=== PATIENT | female | born 1990 | race Caucasian/White ===

== ENCOUNTER 2017-02-15 02:48 | Inpatient (IN) | payer OTHER ==
[~2017-02-15] VITALS: Ht 170.2 cm; Wt 98.5 kg
[2017-02-15] MEDS ORDERED: ACETAMINOPHEN 325 MG TAB PO STA (03:04)
[2017-02-15] MEDS ORDERED: morphine 4 MG/ML VIAL IV STA ×2 (03:04→05:12)
[2017-02-15] MEDS ORDERED: ONDANSETRON 4 MG INJ IV STA ×2 (03:04→05:12)
[2017-02-15] MEDS ORDERED: SODIUM CHLORIDE 0.9% 1L BAG IV* STA (03:04)
[2017-02-15 03:35] LABS: BASOPHILS % 0.1 % (0.0-2.0); EOSINOPHILS % 0.1 % (0.0-7.0); HEMATOCRIT 36.3 % (37.0-47.0); HEMOGLOBIN 11.8 g/dl (12.0-16.0); LYMPHOCYTES # 0.9 10^3/ul (0.8-2.9); LYMPHOCYTES % 6.1 % (15.0-51.0); MEAN CORPUSCULAR HEMOGLOBIN 26.6 pg (29.0-33.0); MEAN CORPUSCULAR HGB CONC 32.5 g/dl (32.0-37.0); MEAN CORPUSCULAR VOLUME 81.8 fl (82.0-101.0); MEAN PLATELET VOLUME 10.3 fl (7.4-10.4); NEUTROPHIL # 12.1 10^3/ul (1.6-7.5); NEUTROPHILS % 86.2 % (39.0-77.0); PLATELET COUNT 276 10^3/UL (140-415); RED BLOOD COUNT 4.44 10^6/ul (4.20-5.40); RED CELL DISTRIBUTION WIDTH 13.7 % (11.5-14.5)
[2017-02-15 03:51] LABS: INR 0.97; PROTIME 12.9 Sec (12.2-14.2)
[2017-02-15 03:52] LABS: PARTIAL THROMBOPLASTIN TIME 30.4 Sec (25.0-35.0)
[2017-02-15 03:59] LABS: ADD UMIC YES; UR ASCORBIC ACID NEGATIVE (NEGATIVE); UR BACTERIA FEW /HPF (NONE SEEN); UR BILIRUBIN (Dip) NEGATIVE (NEGATIVE); UR BLOOD (Dip) 3+ mg/dL (NEGATIVE); UR CLARITY TURBID (CLEAR); UR COLOR AMBER (YELLOW); UR GLUCOSE (Dip) NEGATIVE (NEGATIVE); UR KETONES (Dip) NEGATIVE (NEGATIVE); UR LEUKOCYTE ESTERASE (Dip) 2+ Leu/ul (NEGATIVE); UR MUCUS MANY /HPF (NONE SEEN); UR NITRITE (Dip) POSITIVE (NEGATIVE); UR RBC > 182 /HPF (0-5); UR SQUAMOUS EPITHELIAL CELL MODERATE /HPF (FEW); UR TOTAL PROTEIN (Dip) 2+ mg/dl (NEGATIVE); UR UROBILINOGEN (Dip) NEGATIVE (NEGATIVE)
[2017-02-15 04:02] LABS: ALANINE AMINOTRANSFERASE 38 IU/L (13-69); ALBUMIN 4.5 g/dl (3.3-4.9); ALBUMIN/GLOBULIN RATIO 1.32; ALKALINE PHOSPHATASE 77 IU/L (42-121); ANION GAP 20 (8-16); ASPARTATE AMINO TRANSFERASE 24 IU/L (15-46); BILIRUBIN,INDIRECT 0.4 mg/dl (0-1.1); BILIRUBIN,TOTAL 0.4 mg/dl (0.2-1.3); BLOOD UREA NITROGEN 10 mg/dl (7-20); CALCIUM 9.4 mg/dl (8.4-10.2); CARBON DIOXIDE 25 mmol/L (21-31); CHLORIDE 102 mmol/L (97-110); CREATININE 0.84 mg/dl (0.44-1.00); GLUCOSE 99 mg/dl (70-220); POTASSIUM 3.7 mmol/L (3.5-5.1); SODIUM 143 mmol/L (135-144); TOTAL PROTEIN 7.9 g/dl (6.1-8.1)
[2017-02-15 04:11] LABS: TROPONIN-I < 0.012 ng/ml (0.00-0.12)
--- NOTE | 2017-02-15 04:26 | RADRPT ---
PROCEDURE: CHEST - 1 VIEW CLINICAL INDICATION: 26-year-old female with shortness of breath and sepsis. TECHNIQUE: A single frontal AP portable upright view of the chest was performed. The images were reviewed on a PACS workstation. COMPARISON: None. FINDINGS: The cardiomediastinal silhouette has a normal appearance. There is no evidence for an infiltrate. T he pulmonary vascularity is within normal limits. There is no evidence for pneumothorax or pneumomed iastinum. The osseous structures are intact. IMPRESSION: No evidence for active cardiopulmonary disease. .Lonnie Turner MD, MD Date Time Electronically viewed and signed by .Lonnie Turner MD, on 02/15/2017 04:26 .El/
--- NOTE | 2017-02-15 04:33 | RADRPT ---
PROCEDURE: CT ABDOMEN/PELVIS WITHOUT CONTRAST CLINICAL INDICATION: 26-year-old female with abdominal pain and sepsis. TECHNIQUE: The study was performed utilizing a GE [employer] VCT 64-slice CT scanner. Direct axia l sections were obtained through the abdomen and pelvis without the use of intravenous contrast mate rial. Sagittal and coronal reformations were obtained. One or more of the following dose reduction t echniques were utilized: automated exposure control, adjustment of the mA and/or kV according to pat ient's size or use of iterative reconstruction technique. The images were reviewed on a PACS workst at[employer]. CTD/vol = 20.9 mGy; Total Exam DLP = 1308.1 mGy-cm. COMPARISON: None. FINDINGS: The lung bases are unremarkable. There is no evidence for significant pleural effusion. The liver has a normal size and contour without focal areas of abnormal density. No intrahepatic nor extrahepa tic biliary ductal dilatation is seen. Surgical clips are seen within the gallbladder fossa from car or cholecystectomy. The pancreas is without areas of abnormal attenuation. The spleen is identifie d and has a normal size without abnormal density. The adrenal glands are unremarkable. The right kid vini is without abnormal density, calculi or obstruction. There is a left ureteral stent in place wi th the upper portion in the renal pelvis and the distal aspect in the bladder. Note that there appea rs to be calcifications forming within the distal tip of the ureteral stent in the bladder seen best on coronal image 47. There is mild left-sided hydronephrosis with perinephric infiltration. There are multiple small punctate nonobstructing left lower pole renal candy calculi. The urinary bladder contains urine. There is mild retained stool within the ascending and transverse colon witho ut obstruction. An anastomotic pauline are seen along the cecum consistent with prior appendectomy. There is an intrauterine device within the uterus. There is no significant pelvic free fluid. The aortoiliac vessels are without aneurysmal dilatation. The osseous structures are intact. IMPRESSION: 1. Left ureteral stent in place with calcifications forming along the distal tip of the ureteral st ent in the bladder and mild resultant left-sided hydronephrosis with perinephric infiltration. 2. Multiple small nonobstructing left lower pole renal candy calculi. 3. Status post cholecystectomy. 4. Mild retained stool within the proximal colon without obstruction. 5. Status post appendectomy. 6. Intrauterine device. .Lonnie Turner MD, MD Date Time Electronically viewed and signed by .Lonnie Turner MD, MD on 02/15/2017 04:32 ./
[2017-02-15] MEDS ORDERED: HYDROmorphONE 1 MG/ML SYG IV STA (05:13)
--- NOTE | 2017-02-15 05:23 | ERD ---
ER Documentation Chief Complaint Date/Time DATE: 02/15/17 TIME: 05:22 Chief Complaint N/V fever for 2 days with a stent in L kidney HPI 26 if no nausea vomiting fever for 2 days. Patient has history of stents in the left kidney. Also complaining. Hematuria. No other current complaints. Pain is mild to moderate intensity. Urgency frequency of urination. ROS All systems reviewed and are negative except as per history of present illness. Allergies Allergies: Coded Allergies: No Known Allergy (Unverified , 02/15/17) PMhx/Soc History of Surgery: Yes (, stent) Anesthesia Reaction: No Hx Neurological Disorder: No Hx Respiratory Disorders: No Hx Cardiac Disorders: No Hx Psychiatric Problems: No Hx Miscellaneous Medical Probl: No Hx Alcohol Use: No Hx Substance Use: No Hx Tobacco Use: No Smoking Status: Never smoker Physical Exam Vitals Vital Signs Date Time Temp Pulse Resp B/P Pulse Ox O2 Delivery O2 Flow Rate FiO2 02/15/17 05:13 86 18 122/66 98 Room Air 02/15/17 02:58 101.1 114 18 144/77 98 Physical Exam Const: [] Head: Atraumatic Eyes: Normal Conjunctiva ENT: Normal External Ears, Nose and Mouth. Neck: Full range of motion..~ No meningismus. Resp: Clear to auscultation bilaterally Cardio: Regular rate and rhythm, no murmurs Abd: Soft, non tender, non distended. Normal bowel sounds Skin: No petechiae or rashes Back: No midline or flank tenderness Ext: No cyanosis, or edema Neur: Awake and alert Psych: Normal Mood and Affect Result Diagram: 02/15/17 0300 02/15/17 0300 Results 24 hrs Laboratory Tests Test 02/15/17 03:00 White Blood Count 14.010^3/ul Red Blood Count 4.4410^6/ul Hemoglobin 11.8g/dl Hematocrit 36.3% Mean Corpuscular Volume 81.8fl Mean Corpuscular Hemoglobin 26.6pg Mean Corpuscular Hemoglobin Concent 32.5g/dl Red Cell Distribution Width 13.7% Platelet Count 78544^3/UL Mean Platelet Volume 10.3fl Neutrophils % 86.2% Lymphocytes % 6.1% Monocytes % 7.0% Eosinophils % 0.1% Basophils % 0.1% Nucleated Red Blood Cells % 0.0/100WBC Neutrophils # 12.110^3/ul Lymphocytes # 0.910^3/ul Monocytes # 1.010^3/ul Eosinophils # 0.010^3/ul Basophils # 0.010^3/ul Nucleated Red Blood Cells # 0.010^3/ul Prothrombin Time 12.9Sec Prothrombin Time Ratio 1.0 INR International Normalized Ratio 0.97 Activated Partial Thromboplast Time 30.4Sec Urine Color JOYCE Urine Clarity TURBID Urine pH 6.0 Urine Specific [place] 1.020 Urine Ketones NEGATIVEmg/dL Urine Nitrite POSITIVEmg/dL Urine Bilirubin NEGATIVEmg/dL Urine Urobilinogen NEGATIVEmg/dL Urine Leukocyte Esterase 2+Kourtney/ul Urine Microscopic RBC > 182/HPF Urine Microscopic WBC > 182/HPF Urine Squamous Epithelial Cells MODERATE/HPF Urine Bacteria FEW/HPF Urine Mucus MANY/HPF Urine Hemoglobin 3+mg/dL Urine Glucose NEGATIVEmg/dL Urine Total Protein 2+mg/dl Sodium Level 143mmol/L Potassium Level 3.7mmol/L Chloride Level 102mmol/L Carbon Dioxide Level 25mmol/L Anion Gap 20 Blood Urea Nitrogen 10mg/dl Creatinine 0.84mg/dl Glucose Level 99mg/dl Lactic Acid Level 1.4mmol/L Calcium Level 9.4mg/dl Total Bilirubin 0.4mg/dl Direct Bilirubin 0.00mg/dl Indirect Bilirubin 0.4mg/dl Aspartate Amino Transf (AST/SGOT) 24IU/L Alanine Aminotransferase (ALT/SGPT) 38IU/L Alkaline Phosphatase 77IU/L Troponin I < 0.012ng/ml Total Protein 7.9g/dl Albumin 4.5g/dl Globulin 3.40g/dl Albumin/Globulin Ratio 1.32 Current Medications Medications (Trade) Dose Ordered Sig/Bandar Route PRN Reason Start Time Stop Time Status Last Admin Dose Admin Sodium Chloride (NS) 3,050 ml BOLUS OVER 2 HOURS STAT IV* 02/15/17 03:04 02/15/17 03:07 DC 02/15/17 03:26 Acetaminophen (Tylenol Tab) 650 mg ONCE STAT PO 02/15/17 03:04 02/15/17 03:08 DC 02/15/17 03:27 Morphine Sulfate (morphine) 4 mg ONCE STAT IV 02/15/17 03:04 02/15/17 03:08 DC 02/15/17 03:26 Ondansetron HCl (Zofran Inj) 4 mg ONCE STAT IV 02/15/17 03:04 02/15/17 03:08 DC 02/15/17 03:27 Morphine Sulfate (morphine) 4 mg ONCE STAT IV 02/15/17 05:12 02/15/17 05:15 DC Ondansetron HCl (Zofran Inj) 4 mg ONCE STAT IV 02/15/17 05:12 02/15/17 05:15 DC Hydromorphone HCl (Dilaudid) 1 mg ONCE STAT IV 02/15/17 05:13 02/15/17 05:14 DC Procedures/MDM Medical decision-making: This is a 26-year-old female complicated UTI given the past she has prior stenting. Evidence of pyelonephritis. No evidence of sepsis. Patient will be admitted to Dr. Boogie. Antibiotic started. Culture results pending. Departure Diagnosis: Primary Impression: Pyelonephritis Condition: Stable MANN GIFFORD Feb 15, 2017 05:23
[2017-02-15 06:30] VITALS: BP 132/68; PULSE 92; RESP 18; Ht 170.2 cm; Wt 98.5 kg
[2017-02-15] MEDS ORDERED: CEFTRIAXONE 1 GM/50 ML (PMX) 50 ML IVPB ONE (06:30)
[2017-02-15] MEDS: morphine 4 MG/ML VIAL IV PRN ×3 (06:51→17:50)
[2017-02-15] MEDS ORDERED: CEFTRIAXONE 1 GM/50 ML (PMX) 50 ML IVPB SCH (07:00)
--- NOTE | 2017-02-15 07:02 | HP ---
Date/Time of Note Date/Time of Note DATE: 02/15/17 TIME: 07:02 Assessment/Plan VTE Prophylaxis VTE Prophylaxis Intervention: SCD's Assessment/Plan Assessment/Plan 1. Sepsis, secondary to pyelonephritis -IV antibiotic -Follow-up on urine culture and blood culture results -Pain management -Consider urology and ID consult 2. History of obstructing left ureteral stone, status post stent placement -Consider urology consult HPI/ROS Admit Date/Time Admit Date/Time Feb 15, 2017 at 05:41 Hx of Present Illness This is a 26-year-old female with a history of left ureteral stent placement, cholecystectomy, appendectomy, who presented to the emergency department complaining of fever, left flank pain, hematuria as well as nausea and nonbloody nonbilious vomiting 2 days duration. Patient has a history of left ureteral stone and stent was placed at outside hospital 2 months ago. She was supposed to follow-up with her urologist to have the stent removed but because of insurance reason she was unable to do so. Her insurance company has referred her to another urologist but she said she is not going to be able to see the new urologist until sometime in February. Pt denied chest pain, shortness of breath or hematuria. When she presented to the ER, she was febrile with a temperature of 1 1.1, WBC was 14,000, urinalysis was consistent with a severe UTI. CT abdomen pelvis shows left ureteral stent was calcification forming along the distal tip of ureter with mild left-sided hydronephrosis and perinephric infiltration. Also multiple nonobstructing left lower pole renal calyx calculi and retained stool was noted on the CAT scan. . PMH/Family/Social Past Medical History Medical History: other (Left ureteral stone status post stent placement) Past Surgical History Past Surgical Hx: appendectomy, cholecystectomy Social History Alcohol Use: none Smoking Status: Never smoker Drug Use: none Exam/Review of Systems Vital Signs Vitals Vital Signs Date Time Temp Pulse Resp B/P Pulse Ox O2 Delivery O2 Flow Rate FiO2 02/15/17 05:13 86 18 122/66 98 Room Air 02/15/17 02:58 101.1 Exam Exam Constitutional: alert, oriented, well developed Head: atraumatic, normocephalic Eyes: EOMI, PERRL Respiratory: clear to auscultation, normal air movement Cardiovascular: nl pulses, regular rate and rhythm Gastrointestinal: other (Left flank tenderness), soft Extremities: normal pulses Labs Result Diagram: 02/15/17 0300 02/15/17 030 Medications Medications Current Medications Morphine Sulfate (morphine) 3 mg Q4H PRN IV PAIN Last administered on t 06:51; Admin Dose 3 MG; Start 02/15/17 at 07:00 Ondansetron HCl 4 mg 4 mg Q6H PRN IV NAUSEA AND/OR VOMITING; Start 02/15/17 at 07:00 Sodium Chloride 1,000 ml @ 100 mls/hr Q10H IV ; Start 02/15/17 at 07:00; Stop 02/16/17 at 07:00 Ceftriaxone Sodium (Rocephin) 50 ml @ 100 mls/hr Q12H IVPB ; Start 02/15/17 at 21:00 MANN WILLAMS MD Feb 15, 2017 07:02
[2017-02-15] MEDS: SOD CHLORIDE 0.9% 1,000 ML IV SCH ×2 (07:03→17:47)
[2017-02-15 08:00] VITALS: BP 145/85; RESP 16
[2017-02-15] MEDS: ONDANSETRON 4 MG INJ IV PRN (08:21)
--- NOTE | 2017-02-15 13:54 | CONS ---
Date/Time of Note Date/Time of Note DATE: 02/15/17 TIME: 13:42 Assessment/Plan Assessment/Plan Chief Complaint/Hosp Course Left flank pain, fever and hematuria. The patient is status post cystoscopy, ureteroscopy laser lithotripsy and insertion of a JJ stent. She is covered with antibiotic. She has a stones formed on the distal curl of the stent in the bladder. She does have multiple stones in the lower pole of the left kidney. Plan to do cystoscopy, cystolitholapaxy, removal of the left ureteral JJ stent. Possible insertion of a new left ureteral JJ stent. I discussed with her and her significant other who was with her in the room the treatment and also about the stones on the bottom of the left kidney, and since these stones are not causing her any obstruction and they are small and she may be able to pass them on her own therefore we will do nothing to them at the present time Problems: Consultation Date/Type/Reason Admit Date/Time Feb 15, 2017 at 05:41 Date of Consultation: Feb 15, 2017 Type of Consultation: Urology Reason for Consultation Patient is status post cystoscopy left ureteral JJ stent, she has pain and fever and needs to JJ stent removed Hx of Present Illness This is a 26-year-old female 2 para 2, 2 C-sections, presented to [facility] in December with a left flank pain, was found to have left ureteral stone, underwent cystoscopy left ureteroscopy and laser lithotripsy and insertion of left ureteral JJ stent. Patient was supposed to have the stent removed but for insurance problems she did not. She presented now to [facility] because of fever pain and bleeding. CT scan of the abdomen and pelvis showed 1. Left ureteral stent in place with calcifications forming along the distal tip of the ureteral stent in the bladder and mild resultant left-sided hydronephrosis with perinephric infiltration. 2. Multiple small nonobstructing left lower pole renal candy calculi. 3. Status post cholecystectomy. 4. Mild retained stool within the proximal colon without obstruction. 5. Status post appendectomy. 6. Intrauterine device. .Lonnie Turner MD, MD Therefore a urological consultation was requested Constitutional: febrile Eyes: no complaints ENT: no complaints Respiratory: no complaints Cardiovascular: no complaints Gastrointestinal: No nausea, No vomiting Genitourinary: flank pain, hematuria, other (Patient has vaginal bleeding and on the examination she appears to have her menstrual periods.) Musculoskeletal: no complaints Skin: no complaints Neurologic: no complaints Endocrine: no complaints Lymphatic: no complaints Psychological: no complaints Past Medical History Medical History: no pertinent history, other (Left ureteral stone status post stent placement) Past Surgical History Past Surgical Hx: appendectomy, cholecystectomy, other (2 C-sections) Social History Father has renal failure and is on hemodialysis, no family history of kidney stones Alcohol Use: none Smoking Status: Never smoker Drug Use: none Exam/Review of Systems Vital Signs Vitals Vital Signs Date Time Temp Pulse Resp B/P Pulse Ox O2 Delivery O2 Flow Rate FiO2 02/15/17 08:00 100.1 101 16 145/85 100 02/15/17 06:30 Room Air Exam Constitutional: alert, oriented Psych: no complaints Head: normocephalic Eyes: nl conjunctiva ENMT: nl external ears & nose Neck: non-tender, supple Respiratory: normal air movement Cardiovascular: regular rate and rhythm Gastrointestinal: other (Tender left lower quadrant and left flank area), soft Genitourinary - Female: CVA tenderness, other (Patient has IUD) Extremities: No calf tenderness Skin: nl turgor Results Result Diagram: 02/15/17 0300 02/15/17 0300 Results 24 hrs Laboratory Tests Test 02/15/17 03:00 02/15/17 05:19 02/15/17 08:12 White Blood Count 14.0 H Red Blood Count 4.44 Hemoglobin 11.8 L Hematocrit 36.3 L Mean Corpuscular Volume 81.8 L Mean Corpuscular Hemoglobin 26.6 L Mean Corpuscular Hemoglobin Concent 32.5 Red Cell Distribution Width 13.7 Platelet Count 276 Mean Platelet Volume 10.3 Neutrophils % 86.2 H Lymphocytes % 6.1 L Monocytes % 7.0 Eosinophils % 0.1 Basophils % 0.1 Nucleated Red Blood Cells % 0.0 Neutrophils # 12.1 H Lymphocytes # 0.9 Monocytes # 1.0 H Eosinophils # 0.0 Basophils # 0.0 Nucleated Red Blood Cells # 0.0 Prothrombin Time 12.9 Prothrombin Time Ratio 1.0 INR International Normalized Ratio 0.97 Activated Partial Thromboplast Time 30.4 Urine Color JOYCE Urine Clarity TURBID A Urine pH 6.0 Urine Specific [place] 1.020 Urine Ketones NEGATIVE Urine Nitrite POSITIVE A Urine Bilirubin NEGATIVE Urine Urobilinogen NEGATIVE Urine Leukocyte Esterase 2+ H Urine Microscopic RBC > 182 H Urine Microscopic WBC > 182 H Urine Squamous Epithelial Cells MODERATE Urine Bacteria FEW A Urine Mucus MANY A Urine Hemoglobin 3+ H Urine Glucose NEGATIVE Urine Total Protein 2+ H Sodium Level 143 Potassium Level 3.7 Chloride Level 102 Carbon Dioxide Level 25 Anion Gap 20 H Blood Urea Nitrogen 10 Creatinine 0.84 Glucose Level 99 Lactic Acid Level 1.4 0.8 1.7 Calcium Level 9.4 Total Bilirubin 0.4 Direct Bilirubin 0.00 Indirect Bilirubin 0.4 Aspartate Amino Transf (AST/SGOT) 24 Alanine Aminotransferase (ALT/SGPT) 38 Alkaline Phosphatase 77 Troponin I < 0.012 Total Protein 7.9 Albumin 4.5 Globulin 3.40 H Albumin/Globulin Ratio 1.32 Medications Medications Current Medications Morphine Sulfate (morphine) 3 mg Q4H PRN IV PAIN Last administered on 06:51; Admin Dose 3 MG; Start 02/15/17 at 07:00 Ondansetron HCl 4 mg 4 mg Q6H PRN IV NAUSEA AND/OR VOMITING Last administered on 02/15/17 08:21; Admin Dose 4 MG; Start 02/15/17 at 07:00 Sodium Chloride 1,000 ml @ 100 mls/hr Q10H IV Last administered on 02/15/17 07:03; Admin Dose 100 MLS/HR; Start 02/15/17 at 07:00; Stop 02/16/17 at 07:00 Ceftriaxone Sodium (Rocephin) 50 ml @ 100 mls/hr Q12H IVPB ; Start 02/15/17 at 21:00 GOLD CESAR MD Feb 15, 2017 13:54
[2017-02-15 14:00] VITALS: BP 132/86; RESP 18
[2017-02-15] MEDS ORDERED: morphine 2 MG INJ IV ONE (15:00)
[2017-02-15] MEDS ORDERED: ACETAMINOPHEN 500 MG TAB PO PRN (15:00)
[2017-02-15 20:00] VITALS: BP 125/70; RESP 20
[2017-02-15] MEDS: CEFTRIAXONE 1 GM/50 ML (PMX) 50 ML IVPB SCH (20:16)
[2017-02-15] MEDS ORDERED: ACETAMINOPHEN 325 MG TAB PO PRN (22:00)
[2017-02-16] VITALS (18 sets, daily range): BP systolic 112–143; BP diastolic 65–86; PULSE 86–98; RESP 16–20
[2017-02-16] MEDS: HYDROmorphONE 1 MG/ML SYG IV PRN ×4 (02:17→15:44)
[2017-02-16] MEDS: SOD CHLORIDE 0.9% 1,000 ML IV SCH ×2 (03:00→06:11)
[2017-02-16 05:12] LABS: BASOPHILS % 0.2 % (0.0-2.0); EOSINOPHILS % 0.2 % (0.0-7.0); HEMOGLOBIN 10.4 g/dl (12.0-16.0); LYMPHOCYTES # 1.5 10^3/ul (0.8-2.9); MEAN CORPUSCULAR HEMOGLOBIN 26.1 pg (29.0-33.0); MEAN CORPUSCULAR HGB CONC 32.5 g/dl (32.0-37.0); MEAN CORPUSCULAR VOLUME 80.2 fl (82.0-101.0); MEAN PLATELET VOLUME 10.2 fl (7.4-10.4); MONOCYTES % 8.9 % (0.0-11.0); NEUTROPHILS % 77.4 % (39.0-77.0); PLATELET COUNT 196 10^3/UL (140-415); RED BLOOD COUNT 3.99 10^6/ul (4.20-5.40); RED CELL DISTRIBUTION WIDTH 13.8 % (11.5-14.5); WHITE BLOOD COUNT 11.7 10^3/ul (4.8-10.8)
[2017-02-16 05:43] LABS: CHOL/HDL RATIO 2.5 RATIO; MAGNESIUM 1.9 mg/dl (1.7-2.5); PHOSPHORUS 3.3 mg/dl (2.5-4.9)
[2017-02-16 05:47] LABS: ALBUMIN 3.6 g/dl (3.3-4.9); ALBUMIN/GLOBULIN RATIO 1.12; BILIRUBIN,INDIRECT 0.2 mg/dl (0-1.1); BILIRUBIN,TOTAL 0.2 mg/dl (0.2-1.3); CALCIUM 8.5 mg/dl (8.4-10.2); CREATININE 0.6 mg/dl (0.44-1.00); POTASSIUM 3.4 mmol/L (3.5-5.1); TOTAL PROTEIN 6.8 g/dl (6.1-8.1)
[2017-02-16 08:29] LABS: THYROID STIMULATING HORMONE 1.45 MIU/L (0.465-4.680)
[2017-02-16] MEDS: CEFTRIAXONE 1 GM/50 ML (PMX) 50 ML IVPB SCH ×2 (08:37→18:40)
[2017-02-16] MEDS ORDERED: DEXTROSE 5%-0.45% NACL 1,000 ML IV SCH (11:30)
--- NOTE | 2017-02-16 12:01 | PN ---
Date/Time of Note Date/Time of Note DATE: 02/16/17 TIME: 12:01 Assessment/Plan VTE Prophylaxis VTE Prophylaxis Intervention: SCD's Lines/Catheters IV C[facility]ter Type [facility] Saline Lock Assessment/Plan Chief Complaint/Hosp Course 1. Left-sided pyelonephritis. Continue antibiotics. Pancultures negative so far. Urology on the case. 2. Sepsis secondary to left-sided pyelonephritis. No evidence of septic shock. Continue IV fluids. Continue antibiotics. 3. History of left ureteral JJ stent placement. Possible infected left ureteral JJ stent. Continue antimicrobials. Urology following. 4. Nephrolithiasis. The patient being followed by urology. Continue IV hydration. 5. Microcytic, hypochromic anemia. Etiology unclear. Will obtain an iron panel. Monitor H&H closely. 6. Obesity. BMI of 34.0 kg/m. Weight reduction will be advised. 7. Fluids, electrolytes, and nutrition. Continue IV hydration. N.p.o. for urology procedure. 8. DVT prophylaxis. Bilateral sequential compression devices. 9. Gastrointestinal prophylaxis. Histamine 2 receptor blockers. 10. Plan. Continue antibiotics. Continue pain control. Await urology procedure. Case discussed with Dr. Garrett. Problems: Subjective 24 Hr Interval Summary Free Text/Dictation Abdominal pain well controlled with IV Dilaudid. Had 2 febrile episodes last night. Exam/Review of Systems Vital Signs Vitals Vital Signs Date Time Temp Pulse Resp B/P Pulse Ox O2 Delivery O2 Flow Rate FiO2 02/16/17 08:39 99.0 96 20 116/69 97 02/16/17 00:05 Room Air Intake and Output 02/15/17 02/15/17 02/16/17 15:00 23:00 07:00 Intake Total 1810 ml 1820 ml Balance 1810 ml 1820 ml Exam General: Obese 26 year-old female lying in bed in no apparent distress. HEENT: Normocephalic, atraumatic. Eyes: Anicteric sclerae, conjunctivae clear. ENT: Nasal septum midline, oral mucosa moist. Neck supple, no JVD noticed. Respiratory: Bilaterally clear breath sounds. No use of accessory muscles of respiration. No adventitious breath sounds. Cardiovascular: S1, S2 heard. No murmurs or gallops. Abdomen: Soft and nondistended. Bowel sounds positive in all 4 quadrants. Left upper quadrant tenderness. Genitourinary: Left CVA tenderness. Extremities: No cyanosis, no clubbing, no edema. Peripheral pulses palpable. Neurologic: Cranial nerves II through XII grossly intact. The patient is awake, alert, and oriented. Skin: Normal skin turgor. No skin rashes. Results Result Diagram: 02/16/17 0450 02/16/17 0450 Results 24 hrs Laboratory Tests Test 02/16/17 04:50 White Blood Count 11.7 H Red Blood Count 3.99 L Hemoglobin 10.4 L Hematocrit 32.0 L Mean Corpuscular Volume 80.2 L Mean Corpuscular Hemoglobin 26.1 L Mean Corpuscular Hemoglobin Concent 32.5 Red Cell Distribution Width 13.8 Platelet Count 196 # Mean Platelet Volume 10.2 Neutrophils % 77.4 H Lymphocytes % 13.0 L Monocytes % 8.9 Eosinophils % 0.2 Basophils % 0.2 Nucleated Red Blood Cells % 0.0 Neutrophils # 9.0 H Lymphocytes # 1.5 Monocytes # 1.0 H Eosinophils # 0.0 Basophils # 0.0 Nucleated Red Blood Cells # 0.0 Sodium Level 140 Potassium Level 3.4 L Chloride Level 103 Carbon Dioxide Level 24 Anion Gap 16 Blood Urea Nitrogen 4 L Creatinine 0.60 Glucose Level 102 Hemoglobin A1c 5.2 Calcium Level 8.5 Phosphorus Level 3.3 Magnesium Level 1.9 Total Bilirubin 0.2 Direct Bilirubin 0.00 Indirect Bilirubin 0.2 Aspartate Amino Transf (AST/SGOT) 54 H Alanine Aminotransferase (ALT/SGPT) 98 H Alkaline Phosphatase 121 # Total Protein 6.8 # Albumin 3.6 Globulin 3.20 Albumin/Globulin Ratio 1.12 Triglycerides Level 79 Cholesterol Level 111 LDL Cholesterol, Calculated 52 HDL Cholesterol 43 Cholesterol/HDL Ratio 2.5 Thyroid Stimulating Hormone (TSH) 1.450 Medications Medications Current Medications Morphine Sulfate (morphine) 3 mg Q4H PRN IV PAIN Last administered on 17:50; Admin Dose 3 MG; Start 02/15/17 at 07:00 Ondansetron HCl 4 mg 4 mg Q6H PRN IV NAUSEA AND/OR VOMITING Last administered on 02/15/17 08:21; Admin Dose 4 MG; Start 02/15/17 at 07:00 Ceftriaxone Sodium (Rocephin) 50 ml @ 100 mls/hr Q12H IVPB Last administered on 02/16/17 08:37; Admin Dose 100 MLS/HR; Start 02/15/17 at 21:00 Acetaminophen (Tylenol Tab) 500 mg Q6H PRN PO PAIN AND OR ELEVATED TEMP Last administered on 02/15/17 16:00; Admin Dose 500 MG; Start 02/15/17 at 15:00 Hydromorphone HCl (Dilaudid) 0.5 mg Q4H PRN IV PAIN Last administered on 11:27; Admin Dose 0.5 MG; Start 02/15/17 at 22:00 Acetaminophen 650 mg 650 mg Q6H PRN PO ELEVATED TEMPERATURE Last administered on 02/16/17 09:07; Admin Dose 650 MG; Start 02/15/17 at 22:00 Potassium Chloride 30 meq/ Dextrose 265 ml @ 88.333 mls/ hr ONCE ONCE IVPB ; Start 02/16/17 at 12:30; Stop 02/16/17 at 15:29 Dextrose/Sodium Chloride (D5-1/2ns) 1,000 ml @ 100 mls/hr Q10H IV Last administered on 02/16/17 11:34; Admin Dose 100 MLS/HR; Start 02/16/17 at 11:30 ; Stop 02/16/17 at 21:29 CHRISTINA ARMENTA NP Feb 16, 2017 12:01
[2017-02-16] MEDS ORDERED: POTASSIUM CHLORIDE 30 MEQ in DEXTROSE 5% 250 ML IVPB ONE (12:30)
[2017-02-16 12:40] LABS: IRON < 10 ug/dl (35-150)
[2017-02-16 12:42] LABS: TOTAL IRON BINDING CAPACITY 332 ug/dl (241-421)
[2017-02-16] MEDS: ONDANSETRON 4 MG INJ IV PRN (15:39)
--- NOTE | 2017-02-16 17:37 | HPN ---
Date/Time of Note Date/Time of Note DATE: 02/16/17 TIME: 17:36 Interval H&P Admission Note Pt. seen H&P reviewed: No system changes GOLD CESAR MD Feb 16, 2017 17:36
[2017-02-16] MEDS ORDERED: IOHEXOL 300MG/ML 30 ML BTL INJ ONE (18:31)
--- NOTE | 2017-02-16 18:43 | OPR ---
Date/Time of Note Date/Time of Note DATE: 02/16/17 TIME: 18:34 Operative Report Procedure Date: Feb 16, 2017 Preoperative Diagnosis Calcified distal end of left ureteral JJ stent. Patient is status post cystoscopy ,left ureteroscopy, laser lithotripsy and insertion of left ureteral JJ stent at another hospital on December 30, 2016 Postoperative Diagnosis Calcified distal end of left ureteral JJ stent. Patient is status post cystoscopy ,left ureteroscopy, laser lithotripsy and insertion of left ureteral JJ stent at another hospital on December 30, 2016 Operation Performed Cystoscopy, cystolitholapaxy, removal of left ureteral JJ stent and left retrograde pyelogram Surgeon: GOLD CESAR MD Anesthesia: general Anesthesiologist: EZ DURAN DO Estimated Blood Loss: minimal Specimens Bladder stones and left ureteral JJ stent Complications: None Pt Condition Post Procedure: stable Indications Calcified distal end of left ureteral JJ stent. Patient is status post cystoscopy ,left ureteroscopy, laser lithotripsy and insertion of left ureteral JJ stent at another hospital on December 30, 2016 Operative\Procedure Findings Calcified distal end of left ureteral JJ stent. Procedure Description The patient was brought to the operating room and general anesthesia was induced. Time out was done, the patient was identified by her name, date and the procedure and the side and the site of the procedure. Patient was positioned in the lithotomy position and the genital area was prepped and draped in the usual sterile manner. A 21 Maltese cystoscope sheath was introduced into the bladder, urine was collected for culture and sensitivity. The above mentioned findings were noted. 500 mcm laser fiber was then used to break the calcification formed on the distal curl of the JJ stent. Fluoroscopy was done to make sure there are no calcification on the renal curl of the JJ stent or along the stent in the ureter. Then under fluoroscopy the distal end of the stent was grasped with the grasper and while under fluoroscopy the stent was pulled out the proximal and did uncover easily and the stent was removed intact. Then I used a 10 Maltese cone tip ureteral catheter and did a retrograde pyelogram on the left side. There was no obstruction in the left ureter and the collecting system was patent. The stone fragments in the bladder where then drained. The bladder was emptied and the patient was then transferred to recovery room in stable and satisfactory condition GOLD CESAR MD Feb 16, 2017 18:43
[2017-02-16] MEDS ORDERED: ONDANSETRON 4 MG INJ IV PRN (19:00)
[2017-02-16] MEDS ORDERED: DIPHENHYDRAMINE 50 MG INJ IV PRN (19:00)
[2017-02-16] MEDS ORDERED: PROCHLORPERAZINE 10 MG INJ IV PRN (19:00)
[2017-02-16] MEDS ORDERED: HYDROmorphONE (0.2 MG/ML) 10ML SYG IV PRN (19:00)
[2017-02-16] MEDS ORDERED: MEPERIDINE 25 MG INJ IV PRN (19:00)
[2017-02-16] MEDS: HYDROmorphONE (0.2 MG/ML) 10ML SYG IV PRN ×2 (19:03→19:13)
[2017-02-16] MEDS ORDERED: HYDROmorphONE 1 MG/ML SYG IV STA (20:22)
[2017-02-16] MEDS ORDERED: CEPASTAT LOZENGE MT PRN (21:00)
[2017-02-17] MEDS: HYDROmorphONE 1 MG/ML SYG IV PRN ×5 (00:56→20:56)
[2017-02-17 02:00] VITALS: BP 123/82; RESP 17
[2017-02-17] MEDS: SOD CHLORIDE 0.9% 1,000 ML IV SCH ×4 (02:33→21:00)
--- NOTE | 2017-02-17 02:35 | RADRPT ---
PROCEDURE: Fluoroscopy services. CLINICAL INDICATION: Left ureteral stone. TECHNIQUE: Fluoroscopy services during left retrograde ureteropyelogram and stone removal. COMPARISON: CT abdomen and pelvis dated 02/15/2017. FINDINGS: Fluoroscopy services during left retrograde ureteropyelogram and stone removal. 7 intraoperative spo t films were obtained at intermediate stages during this procedure and demonstrate successful left r etrograde ureter pyelograms unremarkable left renal calyces and pelvis. The previously seen left ure teral stent is removed. 45.1 seconds of fluoroscopy time were employed during this procedure. IMPRESSION: Fluoroscopy services during left retrograde ureteropyelogram and stone removal. RPTAT: [facility]U Physician Sam Date Time Electronically viewed and signed by Physician Sam on 02/17/2017 02:34 RS/
[2017-02-17 06:09] LABS: BASOPHILS % 0.1 % (0.0-2.0); HEMATOCRIT 34.4 % (37.0-47.0); LYMPHOCYTES # 0.6 10^3/ul (0.8-2.9); LYMPHOCYTES % 8.5 % (15.0-51.0); MEAN CORPUSCULAR HEMOGLOBIN 25.9 pg (29.0-33.0); MEAN CORPUSCULAR VOLUME 80.9 fl (82.0-101.0); MEAN PLATELET VOLUME 10.4 fl (7.4-10.4); MONOCYTE # 0.3 10^3/ul (0.3-0.9); NEUTROPHIL # 6.1 10^3/ul (1.6-7.5); PLATELET COUNT 246 10^3/UL (140-415); RED BLOOD COUNT 4.25 10^6/ul (4.20-5.40); RED CELL DISTRIBUTION WIDTH 13.7 % (11.5-14.5)
[2017-02-17 06:32] LABS: CALCIUM 9.1 mg/dl (8.4-10.2); CREATININE 0.62 mg/dl (0.44-1.00); POTASSIUM 4.2 mmol/L (3.5-5.1)
[2017-02-17 06:49] LABS: MAGNESIUM 1.9 mg/dl (1.7-2.5)
[2017-02-17 07:40] VITALS: BP 121/71; RESP 18
[2017-02-17] MEDS: CEFTRIAXONE 1 GM/50 ML (PMX) 50 ML IVPB SCH (08:24)
--- NOTE | 2017-02-17 13:27 | PN ---
Date/Time of Note Date/Time of Note DATE: 02/17/17 TIME: 13:26 Assessment/Plan VTE Prophylaxis VTE Prophylaxis Intervention: SCD's Lines/Catheters IV [facility] Peripheral IV Assessment/Plan Chief Complaint/Hosp Course 1. Left-sided pyelonephritis. Continue antibiotics as per sensitivities. Urology on the case. 2. Sepsis secondary to left-sided pyelonephritis. No evidence of septic shock. Continue IV fluids. Continue antibiotics. 3. Calcified distal end of left ureteral JJ stent. S/P cystoscopy, cystolitholapaxy, removal of left ureteral JJ stent and left retrograde pyelogram on 02/16/2017 4. Nephrolithiasis. The patient being followed by urology. Continue IV hydration. 5. Microcytic, hypochromic anemia. Etiology unclear. Iron panel showing iron deficiency. Will start the patient on iron supplements. 6. Obesity. BMI of 34.0 kg/m. Weight reduction will be advised. 7. Fluids, electrolytes, and nutrition. Continue IV hydration. Regular diet. 8. DVT prophylaxis. Bilateral sequential compression devices. 9. Gastrointestinal prophylaxis. Histamine 2 receptor blockers. 10. Plan. Continue antibiotics. Continue pain control. Await urology clearance before discharge. Case discussed with Dr. Garrett. Problems: Subjective 24 Hr Interval Summary Free Text/Dictation Complains of abdominal pain and left-sided flank pain. The patient remains afebrile. Exam/Review of Systems Vital Signs Vitals Vital Signs Date Time Temp Pulse Resp B/P Pulse Ox O2 Delivery O2 Flow Rate FiO2 02/17/17 07:40 97.6 60 18 121/71 97 02/16/17 19:35 Room Air Intake and Output 02/16/17 02/16/17 02/17/17 15:00 23:00 07:00 Intake Total 50 ml 2265 ml 1040 ml Output Total 2 ml Balance 50 ml 2263 ml 1040 ml Exam General: Obese 26 year-old female lying in bed in no apparent distress. HEENT: Normocephalic, atraumatic. Eyes: Anicteric sclerae, conjunctivae clear. ENT: Nasal septum midline, oral mucosa moist. Neck supple, no JVD noticed. Respiratory: Bilaterally clear breath sounds. No use of accessory muscles of respiration. No adventitious breath sounds. Cardiovascular: S1, S2 heard. No murmurs or gallops. Abdomen: Soft and nondistended. Bowel sounds positive in all 4 quadrants. Left upper quadrant tenderness. Genitourinary: Left CVA tenderness. Extremities: No cyanosis, no clubbing, no edema. Peripheral pulses palpable. Neurologic: Cranial nerves II through XII grossly intact. The patient is awake, alert, and oriented. Skin: Normal skin turgor. No skin rashes. Results Result Diagram: 02/17/17 0546 02/17/17 0546 Results 24 hrs Laboratory Tests Test 02/17/17 05:46 White Blood Count 7.0 # Red Blood Count 4.25 Hemoglobin 11.0 L Hematocrit 34.4 L Mean Corpuscular Volume 80.9 L Mean Corpuscular Hemoglobin 25.9 L Mean Corpuscular Hemoglobin Concent 32.0 Red Cell Distribution Width 13.7 Platelet Count 246 # Mean Platelet Volume 10.4 Neutrophils % 87.0 H Lymphocytes % 8.5 L Monocytes % 4.0 Eosinophils % 0.0 Basophils % 0.1 Nucleated Red Blood Cells % 0.0 Neutrophils # 6.1 Lymphocytes # 0.6 L Monocytes # 0.3 Eosinophils # 0.0 Basophils # 0.0 Nucleated Red Blood Cells # 0.0 Sodium Level 143 Potassium Level 4.2 Chloride Level 103 Carbon Dioxide Level 26 Anion Gap 18 H Blood Urea Nitrogen 6 L Creatinine 0.62 Glucose Level 114 Calcium Level 9.1 Phosphorus Level 3.0 Magnesium Level 1.9 Medications Medications Current Medications Morphine Sulfate (morphine) 3 mg Q4H PRN IV PAIN Last administered on 17:50; Admin Dose 3 MG; Start 02/15/17 at 07:00 Ondansetron HCl 4 mg 4 mg Q6H PRN IV NAUSEA AND/OR VOMITING Last administered on 02/16/17 15:39; Admin Dose 4 MG; Start 02/15/17 at 07:00 Ceftriaxone Sodium (Rocephin) 50 ml @ 100 mls/hr Q12H IVPB Last administered on 02/17/17 08:24; Admin Dose 100 MLS/HR; Start 02/15/17 at 21:00 Acetaminophen (Tylenol Tab) 500 mg Q6H PRN PO PAIN AND OR ELEVATED TEMP Last administered on 02/15/17 16:00; Admin Dose 500 MG; Start 02/15/17 at 15:00 Hydromorphone HCl (Dilaudid) 0.5 mg Q4H PRN IV PAIN Last administered on 10:38; Admin Dose 0.5 MG; Start 02/15/17 at 22:00 Acetaminophen 650 mg 650 mg Q6H PRN PO ELEVATED TEMPERATURE Last administered on 02/16/17 09:07; Admin Dose 650 MG; Start 02/15/17 at 22:00 Sodium Chloride (NS) 1,000 ml @ 100 mls/hr Q10H IV Last administered on 02:33; Admin Dose 100 MLS/HR; Start 02/16/17 at 21:30 Phenol (Cepastat Lozenge) 1 lozenge Q1H PRN MT Sore throat Last administered on 02/16/17 20:37; Admin Dose 1 LOZENGE; Start 02/16/17 at 21:00 CHRISTINA ARMENTA NP Feb 17, 2017 13:27
[2017-02-17] MEDS: FLUCONAZOLE 200 MG/NS (PMX) 100 ML IVPB SCH (14:56)
[2017-02-17 15:38] VITALS: BP 122/68; RESP 18
[2017-02-17] MEDS: SOD FERRIC GLUC COMPLX 125 MG in SOD CHLORIDE 0.9% 100 ML IVPB SCH (16:25)
[2017-02-17] MEDS: AMPICILLIN 500 MG CAP PO SCH (17:26)
[2017-02-17] MEDS ORDERED: HYDROmorphONE 2 MG/ML SYG ONE (18:02)
[2017-02-17] MEDS ORDERED: MIDAZOLAM 1 MG/ML 2 ML INJ ONE (18:02)
[2017-02-17] MEDS ORDERED: DEXAMETHASONE 4 MG/ML 1 ML INJ ONE (18:02)
[2017-02-17] MEDS ORDERED: ONDANSETRON 4 MG INJ ONE (18:02)
[2017-02-17] MEDS ORDERED: PHENYLephrine (100 MCG/ML) 5ML SYG ONE (18:02)
[2017-02-17] MEDS ORDERED: PROPOFOL 20 ML ONE (18:02)
[2017-02-17] MEDS ORDERED: ROCURONIUM 50 MG INJ ONE (18:02)
[2017-02-17] MEDS ORDERED: FAMOTIDINE 20 MG INJ ONE (18:02)
[2017-02-17] MEDS ORDERED: SUGAMMADEX SODIUM 200 MG/2 ML VIAL IV ONE (18:02)
[2017-02-17] MEDS ORDERED: LIDOCAINE 1% (MDV) 20 ML INJ ONE (18:02)
[2017-02-17] MEDS ORDERED: IOHEXOL 300MG/ML 30 ML BTL ONE (18:02)
[2017-02-17] MEDS ORDERED: FENTAnyl 50 MCG/ML VIAL ONE (18:02)
--- NOTE | 2017-02-17 18:45 | PN ---
Date/Time of Note Date/Time of Note DATE: 02/17/17 TIME: 18:40 Assessment/Plan VTE Prophylaxis VTE Prophylaxis Intervention: ambulation Lines/Catheters IV C[facility]ter Type (from [facility]): Peripheral IV Urinary Cath still in place: No Assessment/Plan Chief Complaint/Hosp Course Left flank pain, fever and hematuria. She is covered with antibiotic. She does have multiple stones in the lower pole of the left kidney. Underwent cystoscopy, cystolitholapaxy, removal of the left ureteral JJ stent yesterday . Problems: Assessment/Plan Continue the antibiotic treatment and if she is afebrile tomorrow then she could be discharged home on oral antibiotics. She could be on either Cipro or Bactrim DS Subjective 24 Hr Interval Summary Constitutional: improved, other (She has pain in the left flank area when she urinates) Eyes: no complaints ENT: no complaints Respiratory: no complaints Cardiovascular: no complaints Gastrointestinal: no complaints, No nausea, No vomiting Genitourinary: flank pain (When she urinates on the left side) Musculoskeletal: no complaints Skin: no complaints Neurologic: no complaints Lymphatic: no complaints Psychological: no complaints Exam/Review of Systems Vital Signs Vitals Vital Signs Date Time Temp Pulse Resp B/P Pulse Ox O2 Delivery O2 Flow Rate FiO2 02/17/17 15:38 98.8 60 18 122/68 97 02/16/17 19:35 Room Air Intake and Output 02/16/17 02/16/17 02/17/17 15:00 23:00 07:00 Intake Total 50 ml 2265 ml 1040 ml Output Total 2 ml Balance 50 ml 2263 ml 1040 ml Exam Constitutional: alert, oriented Psych: no complaints Head: normocephalic Eyes: nl conjunctiva ENMT: nl external ears & nose Neck: supple Respiratory: normal air movement Cardiovascular: No edema Gastrointestinal: soft Genitourinary - Female: other (She has her periods now) Extremities: normal pulses, No calf tenderness, No edema Skin: nl turgor Results Result Diagram: 02/17/17 0546 02/17/17 0546 Results 24 hrs Laboratory Tests Test 02/17/17 05:46 White Blood Count 7.0 # Red Blood Count 4.25 Hemoglobin 11.0 L Hematocrit 34.4 L Mean Corpuscular Volume 80.9 L Mean Corpuscular Hemoglobin 25.9 L Mean Corpuscular Hemoglobin Concent 32.0 Red Cell Distribution Width 13.7 Platelet Count 246 # Mean Platelet Volume 10.4 Neutrophils % 87.0 H Lymphocytes % 8.5 L Monocytes % 4.0 Eosinophils % 0.0 Basophils % 0.1 Nucleated Red Blood Cells % 0.0 Neutrophils # 6.1 Lymphocytes # 0.6 L Monocytes # 0.3 Eosinophils # 0.0 Basophils # 0.0 Nucleated Red Blood Cells # 0.0 Sodium Level 143 Potassium Level 4.2 Chloride Level 103 Carbon Dioxide Level 26 Anion Gap 18 H Blood Urea Nitrogen 6 L Creatinine 0.62 Glucose Level 114 Calcium Level 9.1 Phosphorus Level 3.0 Magnesium Level 1.9 Medications Medications Current Medications Morphine Sulfate (morphine) 3 mg Q4H PRN IV PAIN Last administered on 17:50; Admin Dose 3 MG; Start 02/15/17 at 07:00 Ondansetron HCl (Zofran Inj) 4 mg Q6H PRN IV NAUSEA AND/OR VOMITING Last administered on 02/16/17 15:39; Admin Dose 4 MG; Start 02/15/17 at 07:00 Acetaminophen (Tylenol Tab) 500 mg Q6H PRN PO PAIN AND OR ELEVATED TEMP Last administered on 02/15/17 16:00; Admin Dose 500 MG; Start 02/15/17 at 15:00 Hydromorphone HCl (Dilaudid) 0.5 mg Q4H PRN IV PAIN Last administered on 16:26; Admin Dose 0.5 MG; Start 02/15/17 at 22:00 Acetaminophen 650 mg 650 mg Q6H PRN PO ELEVATED TEMPERATURE Last administered on 02/16/17 09:07; Admin Dose 650 MG; Start 02/15/17 at 22:00 Sodium Chloride (NS) 1,000 ml @ 100 mls/hr Q10H IV Last administered on 02:33; Admin Dose 100 MLS/HR; Start 02/16/17 at 21:30 Phenol 1 lozenge 1 lozenge Q1H PRN MT Sore throat Last administered on 20:37; Admin Dose 1 LOZENGE; Start 02/16/17 at 21:00 Fluconazole (Diflucan 200 Mg/ NS (Pmx)) 100 ml @ 100 mls/hr Q24H IVPB Last administered on 02/17/17 14:56; Admin Dose 100 MLS/HR; Start 02/17/17 at 15:00 Ampicillin 500 mg 500 mg Q6 PO Last administered on 02/17/17 17:26; Admin Dose 500 MG; Start 02/17/17 at 18:00 Ferric Sodium Gluconate Complex/ Sodium Chloride (Ferrlecit/NS) 110 ml @ 100 mls/hr Q24H IVPB Last administered on 02/17/17 16:25; Admin Dose 100 MLS/HR; Start 02/17/17 at 15:00; Stop 02/19/17 at 16:05 GOLD CESAR MD Feb 17, 2017 18:45
[2017-02-17 19:51] VITALS: BP 123/59; RESP 18
[2017-02-18] MEDS: AMPICILLIN 500 MG CAP PO SCH ×4 (00:50→17:48)
[2017-02-18] MEDS: HYDROmorphONE 1 MG/ML SYG IV PRN ×2 (01:05→10:33)
[2017-02-18 03:41] VITALS: BP 101/50; RESP 19
[2017-02-18 06:35] LABS: BASOPHILS % 0.2 % (0.0-2.0); EOSINOPHILS % 0.5 % (0.0-7.0); HEMATOCRIT 31.5 % (37.0-47.0); HEMOGLOBIN 9.9 g/dl (12.0-16.0); LYMPHOCYTES # 2.1 10^3/ul (0.8-2.9); LYMPHOCYTES % 25.8 % (15.0-51.0); MEAN CORPUSCULAR HEMOGLOBIN 25.8 pg (29.0-33.0); MEAN CORPUSCULAR HGB CONC 31.4 g/dl (32.0-37.0); MEAN CORPUSCULAR VOLUME 82.2 fl (82.0-101.0); MEAN PLATELET VOLUME 10.9 fl (7.4-10.4); MONOCYTE # 0.6 10^3/ul (0.3-0.9); MONOCYTES % 7.7 % (0.0-11.0); NEUTROPHIL # 5.4 10^3/ul (1.6-7.5); NEUTROPHILS % 65.4 % (39.0-77.0); PLATELET COUNT 232 10^3/UL (140-415); RED BLOOD COUNT 3.83 10^6/ul (4.20-5.40); RED CELL DISTRIBUTION WIDTH 14.1 % (11.5-14.5); WHITE BLOOD COUNT 8.2 10^3/ul (4.8-10.8)
[2017-02-18] MEDS: SOD CHLORIDE 0.9% 1,000 ML IV SCH (06:39)
[2017-02-18 07:03] LABS: CALCIUM 8.6 mg/dl (8.4-10.2); CREATININE 0.79 mg/dl (0.44-1.00); POTASSIUM 3.5 mmol/L (3.5-5.1)
[2017-02-18 07:06] LABS: PHOSPHORUS 3.8 mg/dl (2.5-4.9)
[2017-02-18 08:47] VITALS: BP 133/81; RESP 18
--- NOTE | 2017-02-18 14:31 | PDOCDIS ---
Discharge Instructions DIAGNOSIS Discharge Diagnosis Left sided pyelonephritis. CONDITION Patient Condition: Stable HOME CARE INSTRUCTIONS: Special Diet: Regular OTHER ORDERS: Other Orders: 1. Take medications as well prescription. 2. Regular diet as tolerated. Adequately hydrate yourself. 3. Resume activities as tolerated. 4. Follow-up with Dr. Ribeiro as outpatient. 5. Please go to the nearest emergency room if you continue to have significant abdominal pain despite pain medications, persistent fevers, persistent blood in urine, or any other unusual signs/symptoms. CHRISTINA ARMENTA NP Feb 18, 2017 14:30
[2017-02-18] MEDS ORDERED: FER325 PO (14:38)
[2017-02-18] MEDS ORDERED: HYDR-906 PO (14:38)
[2017-02-18] MEDS ORDERED: DOCU-144 PO (14:38)
[2017-02-18] MEDS ORDERED: CIPR500T4 PO (14:38)
[2017-02-18 15:00] VITALS: BP 131/82; RESP 18
[2017-02-18] MEDS: FLUCONAZOLE 200 MG/NS (PMX) 100 ML IVPB SCH (16:02)
--- NOTE | 2017-02-18 17:22 | DS ---
Date/Time of Note Date/Time of Note DATE: 02/18/17 TIME: 17:19 Discharge Summary Admission/Discharge Info Admit Date/Time Feb 15, 2017 at 05:41 Discharge Date/Time Discharge Diagnosis 1. Left-sided pyelonephritis. 2. Status post sepsis secondary to left-sided pyelonephritis. 3. Calcified distal end of left ureteral JJ stent. S/P cystoscopy, cystolitholapaxy, removal of left ureteral JJ stent and left retrograde pyelogram on 02/16/2017 4. Nephrolithiasis. 5. Microcytic, hypochromic anemia. 6. Iron deficiency. 7. Obesity. Patient Condition: Stable Consults 1. Servando Ribeiro MD, Urology. Procedures CT Abdomen and Pelvis IMPRESSION: 1. Left ureteral stent in place with calcifications forming along the distal tip of the ureteral stent in the bladder and mild resultant left-sided hydronephrosis with perinephric infiltration. 2. Multiple small nonobstructing left lower pole renal candy calculi. 3. Status post cholecystectomy. 4. Mild retained stool within the proximal colon without obstruction. 5. Status post appendectomy. 6. Intrauterine device. Operation Performed Cystoscopy, cystolitholapaxy, removal of left ureteral JJ stent and left retrograde pyelogram. Hx of Present Illness This is a 26-year-old female with a history of left ureteral stent placement, cholecystectomy, appendectomy, who presented to the emergency department complaining of fever, left flank pain, hematuria as well as nausea and nonbloody nonbilious vomiting 2 days duration. Patient has a history of left ureteral stone and stent was placed at outside hospital 2 months ago. She was supposed to follow-up with her urologist to have the stent removed but because of insurance reason she was unable to do so. Her insurance company has referred her to another urologist but she said she is not going to be able to see the new urologist until sometime in February. Pt denied chest pain, shortness of breath or hematuria. When she presented to the ER, she was febrile with a temperature of 1 1.1, WBC was 14,000, urinalysis was consistent with a severe UTI. CT abdomen pelvis shows left ureteral stent was calcification forming along the distal tip of ureter with mild left-sided hydronephrosis and perinephric infiltration. Also multiple nonobstructing left lower pole renal calyx calculi and retained stool was noted on the CAT scan. . Hospital Course The patient was admitted to inpatient medical surgical floor. The patient was started on empiric antibiotics. Pancultures were ordered. The patient was provided with adequate IV fluids. A urology consult was obtained. The patient underwent a cystoscopy, cystolitholapaxy, removal of left ureteral JJ stent and left retrograde pyelogram on 02/16/2017. The patient's urine culture showed enterococcus species and Amber albicans. The patient's antibiotics/ antimicrobial were tailored as per the sensitivities from the culture. The patient was also noticed and normocytic, normochromic anemia. The patient had evidence of underlying iron deficiency. The patient was maintained on IV iron supplements. The patient also has evidence of nephrolithiasis. The patient was maintained on IV fluids. The patient's renal stones were nonobstructing. The patient had a stable hospital course. The patient was cleared by urology to be discharged home. The patient has remained afebrile for more than 24 hours. Discharge Instructions 1. Take medications as well prescription. 2. Regular diet as tolerated. Adequately hydrate yourself. 3. Resume activities as tolerated. 4. Follow-up with Dr. Ribeiro as outpatient. 5. Please go to the nearest emergency room if you continue to have significant abdominal pain despite pain medications, persistent fevers, persistent blood in urine, or any other unusual signs/symptoms. The patient verbalized understanding of her discharge instructions. At this time I would like to thank Dr. Ribeiro for seeing the patient, doing the necessary procedures, and providing clinical recommendations. Case discussed with Dr. Garrett Higginson Meds Active Scripts Hydrocodone/Acetaminophen ([place] 5-325 Tablet) 1 Each Tablet, 1 EACH PO Q4H for PAIN, #20 TAB Prov:CHRISTINA ARMENTA NP 02/18/17 Docusate Sodium* (Colace*) 100 Mg Capsule, 100 MG PO BID, #20 CAP Prov:CHRISTINA ARMENTA NP 02/18/17 Ferrous Sulfate* (Ferrous Sulfate*) 325 Mg Tabec, 325 MG PO BID, #60 TAB Prov:CHRISTINA ARMENTA NP 02/18/17 Ciprofloxacin Hcl* (Ciprofloxacin Hcl*) 500 Mg Tablet, 500 MG PO BID for 7 Days , #14 TAB Prov:CHRISTINA ARMENTA NP 02/18/17 Follow-up Plan Follow-up with outpatient urology. Primary Care Provider Not On Staff Doctor Time spent on discharge: > 30 minutes Pending Labs Name: GIORGI ACHARYA Age/Sex: 26/F Attend Dr: MANN WILLAMS MD Acct: [id number] MR# : [id number] : 1990 Location: [facility] 2245-A Admit: 02/15/17 Specimen: [id number] Status: Complete Randa: 02/15/17-299 Rcvd: 02/15-331 Source: CATHETER U Sp Descrip: Procedure Result Microbiology URINE CULTURE Final Organism 1 ENTEROCOCCUS SPECIES COLONY COUNT >100,000 CFU/ml Organism 2 AMBER ALBICANS COLONY COUNT <10,000 CFU/ml ENT SPS M.I.C. RX --------- --- AMPICILLIN <=2 S CIPROFLOXACIN 1 S LEVOFLOXACIN 0.5 S PENICILLIN-G 2 S VANCOMYCIN 1 S Laboratory Tests Test 02/18/17 05:39 White Blood Count 8.210^3/ul (4.8-10.8) Red Blood Count 3.8310^6/ul (4.20-5.40) Hemoglobin 9.9g/dl (12.0-16.0) Hematocrit 31.5% (37.0-47.0) Mean Corpuscular Volume 82.2fl (82.0-101.0) Mean Corpuscular Hemoglobin 25.8pg (29.0-33.0) Mean Corpuscular Hemoglobin Concent 31.4g/dl (32.0-37.0) Red Cell Distribution Width 14.1% (11.5-14.5) Platelet Count 81529^3/UL (140-415) Mean Platelet Volume 10.9fl (7.4-10.4) Neutrophils % 65.4% (39.0-77.0) Lymphocytes % 25.8% (15.0-51.0) Monocytes % 7.7% (0.0-11.0) Eosinophils % 0.5% (0.0-7.0) Basophils % 0.2% (0.0-2.0) Nucleated Red Blood Cells % 0.0/100WBC (0.0-0.0) Neutrophils # 5.410^3/ul (1.6-7.5) Lymphocytes # 2.110^3/ul (0.8-2.9) Monocytes # 0.610^3/ul (0.3-0.9) Eosinophils # 0.010^3/ul (0.0-0.5) Basophils # 0.010^3/ul (0.0-0.1) Nucleated Red Blood Cells # 0.010^3/ul (0.0-0.0) Sodium Level 144mmol/L (135-144) Potassium Level 3.5mmol/L (3.5-5.1) Chloride Level 105mmol/L (97-110) Carbon Dioxide Level 27mmol/L (21-31) Anion Gap 16 (8-16) Blood Urea Nitrogen 11mg/dl (7-20) Creatinine 0.79mg/dl (0.44-1.00) Glucose Level 83mg/dl (70-220) Calcium Level 8.6mg/dl (8.4-10.2) Phosphorus Level 3.8mg/dl (2.5-4.9) Magnesium Level 2.0mg/dl (1.7-2.5) CHRISTINA ARMENTA NP Feb 18, 2017 17:22
[2017-02-18] MEDS: SOD FERRIC GLUC COMPLX 125 MG in SOD CHLORIDE 0.9% 100 ML IVPB SCH (17:48)
== END 2017-02-18 18:55 | disposition home or self-care (01) | DRG 872 ==
LOC: E/R 02:48 → PP2 05:41
PROVIDERS: ADMIT Internal Medicine; ATTEND Internal Medicine
PROC: 0TCB8ZZ Extirpation of Matter from Bladder, Via Natural or Artificial Opening Endoscopic (ICD-10-PCS; 2017-02-16)
PROC: BT1FZZZ Fluoroscopy of Left Kidney, Ureter and Bladder (ICD-10-PCS; 2017-02-16)
PROC: 0T778DZ Dilation of Left Ureter with Intraluminal Device, Via Natural or Artificial Opening Endoscopic (ICD-10-PCS; principal; 2017-02-16 17:30)
DX: A41.9 Sepsis, unspecified organism (principal); T83.192A Other mechanical complication of indwelling ureteral stent, initial encounter; N12 Tubulo-interstitial nephritis, not specified as acute or chronic; E66.01 Morbid (severe) obesity due to excess calories; N20.0 Calculus of kidney; N21.0 Calculus in bladder; Y84.6 Urinary catheterization as the cause of abnormal reaction of the patient, or of later complication, without mention of misadventure at the time of the procedure; D50.9 Iron deficiency anemia, unspecified; E66.9 Obesity, unspecified; Z87.442 Personal history of urinary calculi; Z68.34 Body mass index [BMI] 34.0-34.9, adult; Z71.3 Dietary counseling and surveillance; Z90.89 Acquired absence of other organs; Z98.890 Other specified postprocedural states
CPT/HCPCS: 71010; 74176; 74430; 80048; 80053; 80061; 81001; 82728; 83036; 83540; 83605; 83735; 84100; 84443; 84484; 85025; 85610; 85730; 87040; 87045; 87081; 87086; 88300; 93005; 96374; 96375; 96376; J0696; J1100; J1170; J2250; J2270; J2370; J2405; J2916; J3010; J7030; J7042; J7070; Q9967

== ENCOUNTER 2017-02-21 12:05 | Emergency (ER) | payer OTHER ==
[~2017-02-21] VITALS: Wt 90.0 kg
[~2017-02-21 12:05] MED LIST: CIPR500T4 PO; DOCU-144 PO; FER325 PO; HYDR-906 PO
[2017-02-21] MEDS ORDERED: KETOROLAC 30 MG INJ IV STA (12:24)
[2017-02-21] MEDS ORDERED: ONDANSETRON 4 MG INJ IV STA (12:24)
[2017-02-21] MEDS ORDERED: SOD CHLORIDE 0.9% 1,000 ML IV STA (12:24)
[2017-02-21 13:24] LABS: BASOPHILS % 0.4 % (0.0-2.0); EOSINOPHILS % 0.5 % (0.0-7.0); HEMATOCRIT 35.3 % (37.0-47.0); HEMOGLOBIN 11.3 g/dl (12.0-16.0); LYMPHOCYTES # 1.7 10^3/ul (0.8-2.9); LYMPHOCYTES % 20.5 % (15.0-51.0); MEAN CORPUSCULAR HEMOGLOBIN 25.7 pg (29.0-33.0); MEAN CORPUSCULAR VOLUME 80.2 fl (82.0-101.0); MEAN PLATELET VOLUME 9.9 fl (7.4-10.4); MONOCYTE # 0.6 10^3/ul (0.3-0.9); MONOCYTES % 7.7 % (0.0-11.0); NEUTROPHIL # 5.7 10^3/ul (1.6-7.5); NEUTROPHILS % 70.7 % (39.0-77.0); PLATELET COUNT 331 10^3/UL (140-415); RED CELL DISTRIBUTION WIDTH 13.3 % (11.5-14.5)
[2017-02-21 13:32] LABS: ADD UMIC YES; UR ASCORBIC ACID NEGATIVE (NEGATIVE); UR BILIRUBIN (Dip) NEGATIVE (NEGATIVE); UR BLOOD (Dip) 2+ mg/dL (NEGATIVE); UR CLARITY SLIGHTLY CLOUDY (CLEAR); UR COLOR STRAW (YELLOW); UR GLUCOSE (Dip) NEGATIVE (NEGATIVE); UR KETONES (Dip) NEGATIVE (NEGATIVE); UR LEUKOCYTE ESTERASE (Dip) 2+ Leu/ul (NEGATIVE); UR NITRITE (Dip) NEGATIVE (NEGATIVE); UR RBC 2 /HPF (0-5); UR SPECIFIC GRAVITY (Dip) 1.005 (1.003-1.030); UR SQUAMOUS EPITHELIAL CELL MODERATE /HPF (FEW); UR TOTAL PROTEIN (Dip) NEGATIVE (NEGATIVE); UR UROBILINOGEN (Dip) NEGATIVE (NEGATIVE)
--- NOTE | 2017-02-21 13:36 | RADRPT ---
PROCEDURE: CT abdomen and pelvis without contrast. CLINICAL INDICATION: Pain . Urolithiasis. TECHNIQUE: CT scan of the abdomen and pelvis without contrast was performed and is reconstructed a t 2.5 mm contiguous axial intervals from the dome of the diaphragm to the inferior pubic rami.. The patient was scanned without intravenous contrast. Sagittal and coronal reformatted images were obt ained from the axial source images. The calculated radiation dose measures 1380 mGy centimeters. The CTDI measures 23 mGy. COMPARISON: CT abdomen pelvis February 15 20:17 FINDINGS: The lung bases are clear of any infiltrate or nodule. No effusion is seen. The liver is of normal size, contour and attenuation with no mass or ductal dilatation. Gallbladder has been removed. No splenic, adrenal or pancreatic abnormalities present. Right kidney is unremarkable with no hydronephrosis, calculus or mass in the right ureter is of norm al course and caliber with no stone. There has been interval removal of the left double-J ureteral stent. A cluster of stones is seen in the lower pole of the left kidney with an aggregate measureme nt of 10 mm. In addition, there is a 5 mm stone in the ureteropelvic junction with moderate hydrone phrosis and perinephric stranding. The remainder of the left ureter is of normal course and caliber with no stone. No bladder masses stone is seen. There is an IUD within the endometrial canal. No adnexal mass is present. There is no aneurysm. No adenopathy is present. No bowel mass or obstruction is present. The appendix has been removed. No phlegmon, ascites or pneumoperitoneum is visualized. The osseous structures are intact. IMPRESSION: Moderate left hydro nephrosis following removal of double-J ureteral stent. 5 mm UPJ calculus. Clu ster stones lower pole left kidney. Post cholecystectomy. .José Miguel Slater MD, MD Date Time Electronically viewed and signed by .José Miguel Slater MD, on 02/21/2017 13:36 .A/
[2017-02-21 13:41] LABS: ALBUMIN 4.1 g/dl (3.3-4.9); ALBUMIN/GLOBULIN RATIO 1.28; BILIRUBIN,INDIRECT 0.2 mg/dl (0-1.1); BILIRUBIN,TOTAL 0.2 mg/dl (0.2-1.3); CALCIUM 9.6 mg/dl (8.4-10.2); CREATININE 1.13 mg/dl (0.44-1.00); POTASSIUM 3.9 mmol/L (3.5-5.1); TOTAL PROTEIN 7.3 g/dl (6.1-8.1)
[2017-02-21] MEDS ORDERED: IBUP-1542 PO (14:31)
[2017-02-21] MEDS ORDERED: OXYC-279 PO (14:32)
[2017-02-21] MEDS ORDERED: ONDA4TAB14 PO (14:33)
[2017-02-21 14:42] VITALS: BP 122/76; PULSE 76; RESP 19; TEMP 98.2
--- NOTE | 2017-02-21 15:23 | ERD ---
ER Documentation Chief Complaint Date/Time DATE: 02/21/17 TIME: 15:15 Chief Complaint AP RAD BACK, HX KIDNEY STONES HPI This is a 26-year-old female presents to the ER with left-sided flank pain. Patient was discharged 4 days ago after being admitted for pyelonephritis. In the hospital her J stent was removed. Patient was sent home with Cipro however she states she is unable to keep Cipro down secondary to severe nausea and vomiting. Patient denies any fevers or chills. She denies any hematuria. She does admit to continued urinary frequency and dysuria, however this has gotten better. Patient states that her pain is not controlled with [place], she called her primary care doctor and he told her to come to the ER. ROS 12 point review of systems was done, all negative except per HPI. Medications Home Meds Active Scripts Ondansetron (Ondansetron Odt) 4 Mg Tab.rapdis, 4 MG PO Q6H Y for NAUSEA AND/OR VOMITING, #10 TAB Prov:VICKI ASHTON 02/21/17 Oxycodone HCl/Acetaminophen (Percocet 5-325 mg Tablet) 1 Each Tablet, 1 EACH PO Q6, #10 TAB Prov:VICKI ASHTON 02/21/17 Ibuprofen* (Motrin*) 600 Mg Tab, 600 MG PO Q6, #30 TAB Prov:VICKI ASHTON 02/21/17 Hydrocodone/Acetaminophen ([place] 5-325 Tablet) 1 Each Tablet, 1 EACH PO Q4H for PAIN, #20 TAB Prov:CHRISTINA AREMNTA NP 02/18/17 Docusate Sodium* (Colace*) 100 Mg Capsule, 100 MG PO BID, #20 CAP Prov:CHRISTINA ARMENTA NP 02/18/17 Ferrous Sulfate* (Ferrous Sulfate*) 325 Mg Tabec, 325 MG PO BID, #60 TAB Prov:CHRISTINA ARMENTA NP 02/18/17 Ciprofloxacin Hcl* (Ciprofloxacin Hcl*) 500 Mg Tablet, 500 MG PO BID for 7 Days , #14 TAB Prov:CHRISTINA ARMENTA NP 02/18/17 Allergies Allergies: Coded Allergies: No Known Allergy (Unverified , 02/21/17) PMhx/Soc History of Surgery: Yes (L KIDNEY STENTS, X2, CHOLECYSTECTOMY, APPENDECTOMY ) Anesthesia Reaction: No Hx Neurological Disorder: No Hx Respiratory Disorders: No Hx Cardiac Disorders: No Hx Psychiatric Problems: No Hx Miscellaneous Medical Probl: No Hx Alcohol Use: Yes ("OCCASSIONALLY" ) Hx Substance Use: No Hx Tobacco Use: No Smoking Status: Never smoker Physical Exam Vitals Vital Signs Date Time Temp Pulse Resp B/P Pulse Ox O2 Delivery O2 Flow Rate FiO2 02/21/17 14:42 98.2 76 19 122/76 100 Room Air 02/21/17 12:07 98.1 85 18 140/90 99 Physical Exam GENERAL: The patient is well developed and appropriate for usual state of health , in no apparent distress. HEENT: Atraumatic. CHEST: Clear to auscultation bilaterally. There are no rales, wheezes or rhonchi. HEART: Regular rate and rhythm. No murmurs, clicks, rubs or gallops. ABDOMEN: Soft, nontender and nondistended. Good bowel sounds. No rebound or guarding. No gross peritonitis. No gross organomegaly or masses. No Rome sign or McBurney point tenderness. BACK: No midline or flank tenderness. NEURO: Alert and oriented. SKIN: The skin is warm and dry. Result Diagram: 02/21/17 1308 02/21/17 1308 Results 24 hrs Laboratory Tests Test 02/21/17 13:08 White Blood Count 8.010^3/ul Red Blood Count 4.4010^6/ul Hemoglobin 11.3g/dl Hematocrit 35.3% Mean Corpuscular Volume 80.2fl Mean Corpuscular Hemoglobin 25.7pg Mean Corpuscular Hemoglobin Concent 32.0g/dl Red Cell Distribution Width 13.3% Platelet Count 87349^3/UL Mean Platelet Volume 9.9fl Neutrophils % 70.7% Lymphocytes % 20.5% Monocytes % 7.7% Eosinophils % 0.5% Basophils % 0.4% Nucleated Red Blood Cells % 0.0/100WBC Neutrophils # 5.710^3/ul Lymphocytes # 1.710^3/ul Monocytes # 0.610^3/ul Eosinophils # 0.010^3/ul Basophils # 0.010^3/ul Nucleated Red Blood Cells # 0.010^3/ul Urine Color STRAW Urine Clarity SLIGHTLY CLOUDY Urine pH 7.0 Urine Specific Schriever 1.005 Urine Ketones NEGATIVEmg/dL Urine Nitrite NEGATIVEmg/dL Urine Bilirubin NEGATIVEmg/dL Urine Urobilinogen NEGATIVEmg/dL Urine Leukocyte Esterase 2+Kourtney/ul Urine Microscopic RBC 2/HPF Urine Microscopic WBC 13/HPF Urine Squamous Epithelial Cells MODERATE/HPF Urine Hemoglobin 2+mg/dL Urine Glucose NEGATIVEmg/dL Urine Total Protein NEGATIVEmg/dl Sodium Level 142mmol/L Potassium Level 3.9mmol/L Chloride Level 98mmol/L Carbon Dioxide Level 29mmol/L Anion Gap 19 Blood Urea Nitrogen 13mg/dl Creatinine 1.13mg/dl Glucose Level 90mg/dl Calcium Level 9.6mg/dl Total Bilirubin 0.2mg/dl Direct Bilirubin 0.00mg/dl Indirect Bilirubin 0.2mg/dl Aspartate Amino Transf (AST/SGOT) 101IU/L Alanine Aminotransferase (ALT/SGPT) 151IU/L Alkaline Phosphatase 96IU/L Total Protein 7.3g/dl Albumin 4.1g/dl Globulin 3.20g/dl Albumin/Globulin Ratio 1.28 Lipase 86U/L Current Medications Medications (Trade) Dose Ordered Sig/Bandar Route PRN Reason Start Time Stop Time Status Last Admin Dose Admin Sodium Chloride (NS) 1,000 ml @ 1,000 mls/hr Q1H STAT IV 02/21/17 12:24 02/21/17 13:23 DC 02/21/17 13:17 Ondansetron HCl (Zofran Inj) 4 mg ONCE STAT IV 02/21/17 12:24 02/21/17 12:26 DC 02/21/17 13:17 Ketorolac Tromethamine (Toradol) 30 mg ONCE STAT IV 02/21/17 12:24 02/21/17 12:26 DC 02/21/17 13:17 [place] [id number] Radiology Main Line: [phone] DIAGNOSTIC IMAGING REPORT Patient: GIORGI ACHARYA : 1990 Age: 26 Sex: F MR #: [id number] DOS: 02/21/17 1224 Ordering MD: VICKI ASHTON PA-C Location: [facility] Room/Bed: PROCEDURE: CT abdomen and pelvis without contrast. CLINICAL INDICATION: Pain . Urolithiasis. TECHNIQUE: CT scan of the abdomen and pelvis without contrast was performed and is reconstructed at 2.5 mm contiguous axial intervals from the dome of the diaphragm to the inferior pubic rami.. The patient was scanned without intravenous contrast. Sagittal and coronal reformatted images were obtained from the axial source images. The calculated radiation dose measures 1380 mGy centimeters. The CTDI measures 23 mGy. COMPARISON: CT abdomen pelvis February 15, 20:17 FINDINGS: The lung bases are clear of any infiltrate or nodule. No effusion is seen. The liver is of normal size, contour and attenuation with no mass or ductal dilatation. Gallbladder has been removed. No splenic, adrenal or pancreatic abnormalities present. Right kidney is unremarkable with no hydronephrosis, calculus or mass in the right ureter is of normal course and caliber with no stone. There has been interval removal of the left double-J ureteral stent. A cluster of stones is seen in the lower pole of the left kidney with an aggregate measurement of 10 mm. In addition, there is a 5 mm stone in the ureteropelvic junction with moderate hydronephrosis and perinephric stranding. The remainder of the left ureter is of normal course and caliber with no stone. No bladder masses stone is seen. There is an IUD within the endometrial canal. No adnexal mass is present. There is no aneurysm. No adenopathy is present. No bowel mass or obstruction is present. The appendix has been removed. No phlegmon, ascites or pneumoperitoneum is visualized. The osseous structures are intact. IMPRESSION: Moderate left hydro nephrosis following removal of double-J ureteral stent. 5 mm UPJ calculus. Cluster stones lower pole left kidney. Post cholecystectomy. .José Miguel Slater MD, MD Date Time Electronically viewed and signed by .José Miguel Slater MD, MD on 02/21/2017 13: 36 .A/ CC: VICKI ASHTON Procedures/[facility] [place] This is a 26-year-old female that presents to the ER with continued flank pain. Patient does have kidney stones and continued urinary tract infection. At this time suspicion for septic stone is low as patient is afebrile. Her pain was completely controlled in the ER with Toradol. I discussed this case with my supervising physician Dr. Bush. At this time patient does have a white blood cell count and it is significantly improved from last visit (14 to 8). In regards to patients WBC's in the urine they are also better down from 182 to 13. Patient's urinary symptoms are improving and her pain was controlled in the ER. Patient is stable for outpatient follow up with Urology. She was well appearing and she was able to tolerate PO fluids. Patient was told to continue with Cipro at home, Zofran ODT was added to her regime or medications and she was given a short course of Percocet + ibuprofen for pain control. Suspicion for sepsis, or acute abdomen is low. Patient is to follow-up with her primary care doctor within 1-2 days return to ER sooner if symptoms worsen. My medical decision making was shared with the patient she understands and agrees with plan. Departure Diagnosis: Primary Impression: UTI (urinary tract infection) Additional Impression: Flank pain Condition: Stable Patient Instructions: Understanding Urinary Tract Infections (UTIs) Additional Instructions: Call your primary care doctor TOMORROW for an appointment during the next 1-2 days.See the doctor sooner or return here if your condition worsens before your appointment time. VICKI ASHTON Feb 21, 2017 15:23
== END 2017-02-21 14:43 | disposition home or self-care (01) ==
LOC: FTE 12:05
DX: N39.0 Urinary tract infection, site not specified (principal)
CPT/HCPCS: 36415; 74176; 80053; 81001; 83690; 85025; 96374; 96375; J1885; J2405; J7030; Z7502